=== PATIENT | female | born 1980 | race Caucasian/White ===

== ENCOUNTER → 2016-10-05 | Outpatient (CLI) | payer BC ==
--- NOTE | 2016-10-05 15:31 | US ---
Thyroid Ultrasound History: Enlarged thyroid. Comparison: None available. Technique: Longitudinal and transverse ultrasound imaging of the thyroid gland. Findings: The right lobe of the thyroid measures 2.6 x 3.2 x approximately 7.0 cm. Thyroid is diffus derek heterogeneous with no dominant nodule identified. The left lobe of the thyroid measures 2.5 x 2.8 x approximately 7.0 cm. The thyroid is diffusely het erogeneous with no dominant nodule identified. The isthmus is normal. The thyroid is diffusely hyperemic. No pathologically enlarged lymph nodes are identified. 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
== END ==
LOC: BRMIMAGING 12:36
PROVIDERS: ATTEND Family Medicine
DX: E04.9 Nontoxic goiter, unspecified (principal)